=== PATIENT | male | born 1960 | race Asian ===

== ENCOUNTER 2021-05-16 13:19 | Emergency (ER) | payer OTHER ==
[~2021-05-16] VITALS: Ht 167.6 cm; Wt 63.5 kg
[2021-05-16] MEDS ORDERED: SODIUM CHLORIDE 0.9% 1000ML 1,000 ML IV STA (13:31)
[2021-05-16] MEDS ORDERED: FAMOTIDINE 20 MG/2 ML VIAL IV STA (13:31)
[2021-05-16] MEDS ORDERED: ONDANSETRON HCL INJ 2MG/ML 2ML 2 MG/ML VIAL IV STA (13:31)
[2021-05-16 13:45] LABS: BASOPHILS # (AUTO) 0.1 (0.0-0.1); BASOPHILS % 0.4 % (0.0-1.0); EOSINOPHILS # (AUTO) 0.3 (0.0-0.4); EOSINOPHILS % 2.3 % (0.0-6.0); HEMATOCRIT 50.5 % (38.2-49.6); HEMOGLOBIN 16.6 g/dL (14.0-18.0); LYMPHOCYTES # (AUTO) 1.7 (1.0-3.2); LYMPHOCYTES % 11.1 % (18.0-39.1); MEAN CORPUSCULAR HEMOGLOBIN 23.1 pg (28-32); MEAN CORPUSCULAR HGB CONC 32.9 g/dL (31-35); MEAN CORPUSCULAR VOLUME 70.2 fL (81-99); MONOCYTES # (AUTO) 0.9 (0.2-0.8); MONOCYTES % 6.2 % (4.4-11.3); NEUTROPHILS # (AUTO) 11.9 (2.1-6.9); NEUTROPHILS % 79.5 % (38.7-80.0); PLATELET COUNT 311 x10e3/uL (140-360); RED CELL DISTRIBUTION WIDTH 17.7 % (11.7-14.4)
[2021-05-16 13:46] LABS: RED BLOOD COUNT 7.19 x10e6/uL (4.3-5.7)
[2021-05-16 14:06] LABS: ALBUMIN 4.5 g/dL (3.5-5.0); ANION GAP 15.3 mmol/L (8-16); CALCIUM 9.9 mg/dL (8.4-10.2); CREATININE, SERUM 1.01 mg/dL (0.72-1.25); POTASSIUM 4.3 mmol/L (3.5-5.1)
[2021-05-16 14:26] LABS: CLARITY,URINE SL CLOUDY (CLEAR); COLOR,URINE STRAW (YELLOW); KETONES,URINE TRACE (NEGATIVE); LEUKOCYTE ESTERASE ,URINE NEGATIVE (NEGATIVE); NITRITE,URINE NEGATIVE (NEGATIVE); PROTEIN,URINE DIPSTICK 1+ (NEGATIVE); URINE UROBILINOGEN 0.2 mg/dL (0.2 - 1)
[2021-05-16] MEDS ORDERED: SODIUM CHLORIDE 0.9% 50ML 50 ML ONE ×2 (14:32→18:14)
[2021-05-16] MEDS ORDERED: IOPAMIDOL 370 MG/ML 200 ML INFUS..BTL INJ ONE ×2 (14:32→18:14)
[2021-05-16 14:33] LABS: BACTERIA,URINE MANY /HPF
[2021-05-16 14:34] LABS: AMORPHOUS SEDIMENT,URINE FEW (FEW); MUCUS,URINE MANY (RARE)
[2021-05-16] MEDS ORDERED: CIPROFLOXACIN 500 MG TAB PO STA (16:40)
[2021-05-16] MEDS ORDERED: METRONIDAZOLE 500 MG TAB PO ONE (16:45)
[2021-05-16 17:02] VITALS: BP 147/96
[2021-05-16] MEDS ORDERED: ONDANSETRON ODT4 MG PO (17:03)
[2021-05-16] MEDS ORDERED: FLAGYL500 MG PO (17:03)
[2021-05-16] MEDS ORDERED: CIPRO500 MG PO (17:03)
== END 2021-05-16 17:18 | disposition home or self-care (01) ==
LOC: ER 13:21
DX: R10.13 Epigastric pain (principal); K52.9 Noninfective gastroenteritis and colitis, unspecified; I10 Essential (primary) hypertension; E78.5 Hyperlipidemia, unspecified
CPT/HCPCS: 36415; 74177; 80053; 81001; 83690; 85025; 93005; 99284; J2405; J7030; Q9967